=== PATIENT | male | born 1980 | race African-American/Black ===

== ENCOUNTER 2021-10-03 16:06 | Emergency (ER) | payer OTHER ==
[~2021-10-03] VITALS: Ht 175.3 cm; Wt 104.0 kg
[2021-10-03 16:11] VITALS: BP 144/78
[2021-10-03] MEDS ORDERED: IBUPROFEN 600MG TABLET PO ONE (16:45)
== END 2021-10-03 16:51 | disposition home or self-care (01) ==
LOC: ER 16:06
DX: R52 Pain, unspecified (principal); J45.909 Unspecified asthma, uncomplicated
CPT/HCPCS: 99283; 99284